=== PATIENT | female | born 1955 | race Caucasian/White ===

== ENCOUNTER → 2020-09-09 | Outpatient (CLI) | payer OTHER ==
[~2020-09-09] MED LIST: ECOTRIN81 MG PO; ELIQUIS2.5 MG PO; HYDROCODON-ACE1 EAC6 PO; LEVOTHYROXINE125 MC1 PO; LEXAPRO10 MG PO; MOBIC7.5 MG PO; TOPROL XL 50 MG50 MG PO; ZESTRIL40 MG PO
[2020-09-09 11:59] LABS: RED BLOOD COUNT 4.7 M/UL (4.00-5.10); WHITE BLOOD COUNT 7.9 K/UL (4.5-11.0)
[2020-09-09 12:18] LABS: BUN/CREATININE RATIO 21 (0-10)
== END ==
LOC: OPSV2 10:00 → EDSTATUS 10:00 → OPSV2 10:47
PROVIDERS: Orthopaedic Surgery
DX: Z01.818 Encounter for other preprocedural examination (principal); M16.12 Unilateral primary osteoarthritis, left hip; I44.4 Left anterior fascicular block; I51.7 Cardiomegaly; R94.31 Abnormal electrocardiogram [ECG] [EKG]
CPT/HCPCS: 36415; 80048; 83036; 85025; 87081; 87086; 93005

== ENCOUNTER → 2020-09-29 | Outpatient (CLI) | payer OTHER | LOC: LAB 13:58 | PROVIDERS: Orthopaedic Surgery | DX: Z53.8 Procedure and treatment not carried out for other reasons (principal) | CPT/HCPCS: 36415; 80048; 86850; 86900; 86901 ==

== ENCOUNTER 2020-09-30 06:40 | Day surgery (SDC) | payer OTHER ==
[~2020-09-30] VITALS: Ht 165.1 cm; Wt 72.6 kg
[2020-09-30] MEDS ORDERED: LEVOTHYROXINE125 MC1 PO (07:32)
[2020-09-30] MEDS ORDERED: ECOTRIN81 MG PO (07:33)
[2020-09-30] MEDS ORDERED: ZESTRIL40 MG PO (07:35)
[2020-09-30] MEDS ORDERED: MOBIC7.5 MG PO (07:36)
[2020-09-30] MEDS ORDERED: TOPROL XL 50 MG50 MG PO (07:36)
[2020-09-30] MEDS ORDERED: LEXAPRO10 MG PO (07:36)
[2020-09-30] MEDS ORDERED: ELIQUIS2.5 MG PO (13:51)
[2020-09-30] MEDS ORDERED: HYDROCODON-ACE1 EAC6 PO (13:51)
[2020-10-01 03:43] LABS: HEMOGLOBIN 11.4 gm/dl (12.3-15.3); RED BLOOD COUNT 3.6 M/UL (4.00-5.10); WHITE BLOOD COUNT 11.4 K/UL (4.5-11.0)
[2020-10-01 04:08] LABS: BUN/CREATININE RATIO 27 (0-10)
[2020-10-02 02:44] LABS: HEMOGLOBIN 9.7 gm/dl (12.3-15.3); WHITE BLOOD COUNT 9.7 K/UL (4.5-11.0)
[2020-10-02 02:47] LABS: RED BLOOD COUNT 3.02 M/UL (4.00-5.10)
[2020-10-02 02:59] LABS: BUN/CREATININE RATIO 23 (0-10)
[2020-10-02] MEDS ORDERED: ELIQUIS2.5 MG PO (14:47)
[2020-10-02] MEDS ORDERED: HYDROCODON-ACE1 EAC6 PO (14:47)
== END 2020-10-02 15:00 | disposition home or self-care (01) ==
LOC: M/S 06:40 → ZOBSOF 06:40 → OR 06:40 → EDSTATUS 08:15 → ZOBSOF 08:15 → M/S 18:18 → ZOBSOF 18:18 → OR 10-02 15:00 → M/S 10-02 15:00
PROVIDERS: Orthopaedic Surgery
PROC: 0SRB0J9 Replacement of Left Hip Joint with Synthetic Substitute, Cemented, Open Approach (ICD-10-PCS; principal; 2020-09-30 08:15)
DX: M16.0 Bilateral primary osteoarthritis of hip (principal); D62 Acute posthemorrhagic anemia; I49.3 Ventricular premature depolarization; I10 Essential (primary) hypertension; I25.10 Atherosclerotic heart disease of native coronary artery without angina pectoris; E11.9 Type 2 diabetes mellitus without complications; E03.9 Hypothyroidism, unspecified; F17.210 Nicotine dependence, cigarettes, uncomplicated; E78.5 Hyperlipidemia, unspecified; J44.9 Chronic obstructive pulmonary disease, unspecified; I25.2 Old myocardial infarction; R41.3 Other amnesia; R32 Unspecified urinary incontinence; Z79.82 Long term (current) use of aspirin; Z79.899 Other long term (current) drug therapy; Z79.1 Long term (current) use of non-steroidal anti-inflammatories (NSAID); Z95.1 Presence of aortocoronary bypass graft; Z20.822 Contact with and (suspected) exposure to COVID-19
CPT/HCPCS: ECHO; 36415; 73501; 73502; 76000; 80048; 80061; 82550; 82553; 84484; 85027; 86850; 86900; 86901; 93005; 93306; 94760; 97110; 97116; 97116-GP-CQ; 97162; 97165; 97530; 97535; C1776; J0690; J1100; J1170; J2001; J2405; J2704; J2795; J3010; J7050; J7120; U0003